=== PATIENT | male | born 1980 | race Caucasian/White ===

== ENCOUNTER → 2019-04-04 | Outpatient (CLI) | payer OTHER ==
--- NOTE | 2019-04-04 12:16 | RAD ---
EXAM: LUMBAR SPINE 3 VIEWS. HISTORY: Low back pain. Left lower extremity numbness. COMPARISON: None. FINDINGS: There is straightening of the normal lumbar lordosis. Vertebral body heights are maintained, and no fractures are identified. Endplate remodeling indicates mild degenerative disc disease from L3 through L5. IMPRESSION: 1. Early degenerative disc disease from L3 through L5. Electronically signed by: Freida Araiza MD (04/04/2019 12:14 PM) [facility]
== END | disposition home or self-care (01) ==
LOC: PMG 11:17
PROVIDERS: ATTEND Family Medicine
DX: M51.36 Other intervertebral disc degeneration, lumbar region (principal); M40.46 Postural lordosis, lumbar region
CPT/HCPCS: 72100

== ENCOUNTER → 2019-04-10 | Outpatient (CLI) | payer OTHER ==
--- NOTE | 2019-04-10 09:26 | RAD ---
Examination: VENOUS LOWER EXTREMITY LEFT History: Left leg pain Comparison/Correlation: None FINDINGS: Bilateral lower extremity duplex venous ultrasound exam was performed. Grayscale, color Doppler, and spectral Doppler imaging was performed. Compression and augmentation was performed. The left common femoral vein, superficial femoral vein, popliteal vein, and greater saphenous vein are normal with no evidence of deep venous thrombus. Normal compressibility and augmentation is evident. Right common femoral vein was also imaged and is unremarkable. IMPRESSION: Normal left lower extremity duplex ultrasound exam. No evidence of deep venous thrombus involving the left lower extremity. Electronically signed by: Isaac Noe MD (04/10/2019 9:23 AM) [facility]
== END | disposition home or self-care (01) ==
LOC: PMG 07:58
PROVIDERS: ATTEND Family Medicine
DX: M25.552 Pain in left hip (principal); M79.605 Pain in left leg
CPT/HCPCS: 93971

== ENCOUNTER → 2020-01-08 | Outpatient (CLI) | payer OTHER ==
[2020-01-08 15:58] LABS: BASO # 0.1 x10^3/uL (0.0-0.2); BASO % 1 % (0-3); EOS # 0.4 x10^3/uL (0.0-0.7); EOS % 3 % (0-3); HEMATOCRIT 46.5 % (39.0-53.0); HEMOGLOBIN 15.6 g/dL (13.0-17.5); LYMPH # 2.1 x10^3/uL (1.0-4.8); LYMPH % 18 % (24-48); MEAN CORPUSCULAR HEMOGLOBIN 30 pg (25-35); MEAN CORPUSCULAR HGB CONC 34 g/dL (31-37); MEAN CORPUSCULAR VOLUME 90 fL (79-100); MONO # 0.6 x10^3/uL (0.0-1.1); MONO % 6 % (0-9); NEUT # 8.1 x10^3uL (1.8-7.7); NEUT % 72 % (31-73); PLATELET COUNT 235 x10^3/uL (140-400); RED BLOOD COUNT 5.18 x10^6/uL (4.30-5.70); RED CELL DISTRIBUTION WIDTH 13.6 % (11.5-14.5); WHITE BLOOD COUNT 11.3 x10^3/uL (4.0-11.0)
[2020-01-08 16:29] LABS: ALBUMIN 3.5 g/dL (3.4-5.0); ALBUMIN/GLOBULIN RATIO 0.9 (1.0-1.7); CALCIUM 8.8 mg/dL (8.5-10.1); CREATININE 0.9 mg/dL (0.7-1.3); GFR 93.9; POTASSIUM 3.9 mmol/L (3.5-5.1); TOTAL BILIRUBIN 0.4 mg/dL (0.2-1.0); TOTAL PROTEIN 7.3 g/dL (6.4-8.2); URIC ACID 9.1 mg/dL (3.5-7.2)
[2020-01-08 17:45] LABS: SEDIMENTATION RATE 14 (0-15)
[2020-01-08 23:06] LABS: RHEUMATOID FACTOR 32.9 IU/mL (0.0-13.9)
[2020-01-09 11:05] LABS: FREE T4 1.04 ng/dL (0.76-1.46)
[2020-01-09 11:06] LABS: THYROID STIM HORMONE (TSH) 2.697 uIU/mL (0.358-3.740)
== END ==
LOC: LAB 14:36
PROVIDERS: ATTEND Physician Assistant Medical
DX: H57.89 Other specified disorders of eye and adnexa (principal); G62.9 Polyneuropathy, unspecified
CPT/HCPCS: 36415; 80053; 82306; 82607; 84439; 84443; 84481; 84550; 85025; 85651; 86038; 86431

== ENCOUNTER → 2021-03-27 | Outpatient (CLI) | payer BC ==
--- NOTE | 2021-03-27 10:00 | RAD ---
INDICATION : Reason: EPIGASTRIC PAIN / Spl. Instructions: / History: COMPARISON: None TECHNIQUE: Multiple ultrasound images obtained through the abdomen in grayscale and color. FINDINGS: Liver: Echogenic. Portions not well seen secondary to poor beam penetration Gallbladder: There is pain within the region. No definite gallstones seen. IVC: Not well seen Common Bile Duct: Not well seen Pancreas: Not well visualized. Right Kidney: No hydronephrosis. IMPRESSION: * Limited visualization secondary to overlying soft tissue structures obscuring. * Liver is echogenic. Nonspecific but can be seen with fatty infiltration. * There is pain within the right upper quadrant with definite gallstone not seen. Electronically signed by: Mike Olivares MD (03/27/2021 9:57 AM) [id number]
== END ==
LOC: US 08:33
PROVIDERS: ATTEND Physician Assistant Medical
DX: K76.0 Fatty (change of) liver, not elsewhere classified (principal)
CPT/HCPCS: 76705